=== PATIENT | female | born 1995 | race African-American/Black ===

== ENCOUNTER 2017-03-22 22:31 | Emergency (ER) | payer OTHER ==
[~2017-03-22] VITALS: Ht 170.2 cm; Wt 57.0 kg
[2017-03-22 22:40] VITALS: BP 116/78
== END 2017-03-23 02:08 | disposition home or self-care (01) ==
LOC: M ED 22:31
DX: O99.511 Diseases of the respiratory system complicating pregnancy, first trimester (principal); J06.9 Acute upper respiratory infection, unspecified; O21.9 Vomiting of pregnancy, unspecified; Z3A.00 Weeks of gestation of pregnancy not specified

== ENCOUNTER → 2017-07-18 | Outpatient (CLI) | payer BC | LOC: M SMT 09:49 | DX: Z32.01 Encounter for pregnancy test, result positive (principal) ==

== ENCOUNTER 2017-08-24 22:54 | Emergency (ER) | payer BC | END 2017-08-25 04:13 | disposition left against medical advice (07) | LOC: M ED 22:54 | DX: M79.674 Pain in right toe(s) (principal); M79.675 Pain in left toe(s); Z53.21 Procedure and treatment not carried out due to patient leaving prior to being seen by health care provider | CPT/HCPCS: 99281 ==